=== PATIENT | female | born 1990 | race Caucasian/White ===

== ENCOUNTER → 2017-06-02 | Outpatient (CLI) | payer OTHER ==
[~2017-06-02] MED LIST: BACL20TA PO; CALC600T5; DICY20TA10 PO; EVEN10003; FOLI800T PO; GLUC500C5 PO; HYDR4TAB PO; Iodoral PO; MAGN100T2 PO; PANT20 PO; SELE200T8 PO; TRAM50TA PO; VITACAP7 PO; ZOFR4TAB PO; [UNRECOGNIZED DRUG - OTHER]
--- NOTE | 2017-06-02 11:02 | RADRPT ---
EXAM DATE/TIME: 06/02/2017 10:05 [place] COMPARISON: No previous studies available for comparison. INDICATIONS : Pelvic pain. MEDICAL HISTORY : IBS. Ulcers. H.Pylori. Endometriosis. Insterstitial cystitis. [place] cytosis anemia. SURGICAL HISTORY : Appendectomy. Cholecystectomy. Laparoscopic removal of endometriosis. Upper endoscopy. ENCOUNTER: Initial ACUITY: 1 day PAIN SCORE: 3/10 LOCATION: Left pelvis MEASUREMENTS: UTERUS: 7.1 x 4.0 x 3.4 cm ENDOMETRIAL STRIPE: 7 mm RIGHT OVARY: 2.7 x 2.6 x 2.8 cm LEFT OVARY: 3.4 x 3.2 x 3.0 cm FINDINGS: UTERUS: The myometrium has homogeneous echotexture without mass. Retroverted uterus RIGHT OVARY: Ovary contains no mass or significant cystic lesion. LEFT OVARY: Left ovarian cyst 2.4 cm with no internal echoes and smoothly marginated spivey. MISCELLANEOUS: Trace free fluid is noted. CONCLUSION: 1. Empty uterus 2. 2.4 similar left ovarian cyst with trace free fluid Panchito Menendez MD FACR on June 02, 2017 at 10:56 Board Certified Radiologist. This report was verified electronically.
== END ==
LOC: HRAD 09:44
PROVIDERS: ATTEND Family Medicine
DX: R10.2 Pelvic and perineal pain (principal)
CPT/HCPCS: 76830; 76856